=== PATIENT | male | born 1970 | race Caucasian/White ===

== ENCOUNTER → 2020-05-05 | Outpatient (CLI) | payer OTHER ==
--- NOTE | 2020-05-05 08:39 | CT ---
EXAMINATION TYPE: CT sinus wo con DATE OF EXAM: 05/05/2020 COMPARISON: None HISTORY: polyp of sinus CT DLP: [address] of the paranasal sinuses was performed in the axial and coronal planes. Bone and soft tissue settings are submitted. There is an expansile mass posterior to the left zygoma with extension into the left maxillary sinus measuring 4.2 x 3.5 x 3.2 cm. The mass extends to the floor of the orbit with the osseous floor of th e orbit poorly visualized and this may reflect underlying erosion. There is expansion of the anterior wall of the left maxillary sinus and zygoma with cortical disruption noted. Anterior fixation plate and screws are noted. There also plates and screws identified on bone the superior orbital ridge. The re is disruption of the lateral wall of the left maxillary sinus. Consider underlying polyposis. Mass of other etiology is difficult to exclude. Mucous retention cyst or polyp of the right maxillary sin us noted as well The nasal septum is midline. IMPRESSION: 1. Expansile mass posterior to the left zygoma with extension into the left maxillary sinus as discus sed above. Osseous erosion and expansion identified. The findings may reflect underlying polyposis ho wever mass of other etiology is not excluded. Postoperative changes identified as well. 2. Mucous or tension cyst or polyp of the right maxillary sinus noted as well.
== END | disposition home or self-care (01) ==
LOC: RADCTMAIN 08:07
PROVIDERS: ATTEND Otolaryngology Otolaryngic Allergy
DX: J32.0 Chronic maxillary sinusitis (principal); M85.88 Other specified disorders of bone density and structure, other site; Z98.890 Other specified postprocedural states
CPT/HCPCS: 70486

== ENCOUNTER 2020-05-15 09:51 | Day surgery (SDC) | payer OTHER ==
[2020-05-10 09:07] VITALS: BMI 25.4
[~2020-05-15 09:51] MED LIST: ALPRAZolam 0.25 MG TAB PO PRN; ALPRAZolam 0.5 MG TAB PO PRN; ASPIRIN 325 MG TAB PO ONE; NITROGLYCERIN SL TABS 0.4 MG TAB SUBLINGUAL PRN; SODIUM CHLORIDE 0.9% 1,000 ML in EMPTY BAG 1 BAG IV ONE
[2020-05-15 10:54] LABS: Basophils % (A) 1 %; Eosinophils # (A) 0.1 k/uL (0-0.7); Eosinophils % (A) 1 %; HCT 44.7 % (39.0-53.0); HGB 15.9 gm/dL (13.0-17.5); Lymphocytes # (A) 1.8 k/uL (1.0-4.8); Lymphocytes % (A) 30 %; MCH 33.1 pg (25.0-35.0); MCHC 35.5 g/dL (31.0-37.0); Mean Platelet Volume 6.9; Monocytes # (A) 0.3 k/uL (0-1.0); Monocytes % (A) 4 %; Neutrophils # (A) 3.8 k/uL (1.3-7.7); Neutrophils % (A) 63 %; Platelet Count 231 k/uL (150-450); RBC 4.81 m/uL (4.30-5.90); RDW 12.6 % (11.5-15.5)
[2020-05-15 10:55] VITALS: RESP 16; TEMP 98.4
[2020-05-15 11:06] LABS: African American GFR (CKD) >90 (>60 ml/min/1.73 sqM); Anion Gap 4 mmol/L; Blood Urea Nitrogen 13 mg/dL (9-20); Calcium 9.7 mg/dL (8.4-10.2); Carbon Dioxide 25 mmol/L (22-30); Chloride 111 mmol/L (98-107); Glucose 88 mg/dL (74-99); Non-African American GFR(CKD) 88 (>60 ml/min/1.73 sqM); Potassium 4.2 mmol/L (3.5-5.1); Sodium 140 mmol/L (137-145)
[2020-05-15] MEDS: LIDOCAINE 1% INJ 10MG/ML (20 ML MDV) SQ ONE ×2 (11:32→12:17)
[2020-05-15] MEDS ORDERED: fentaNYL (PF) 50 MCG/ML 2 ML AMP IVP ONE (11:32)
[2020-05-15] MEDS ORDERED: MIDAZOLAM 2 MG/2 ML VIAL IVP ONE (11:32)
[2020-05-15] MEDS ORDERED: VERAPAMIL SYRINGE (5 MG/10 ML) INTRAARTER ONE (11:33)
[2020-05-15] MEDS ORDERED: HEPARIN SODIUM 1,000 UN/ML (10ML VL) IVPB ONE (11:36)
[2020-05-15] MEDS ORDERED: IOPAMIDOL-370 125ML BTL INJ ONE (11:42)
[2020-05-15] MEDS ORDERED: RX INFO: IV CONTRAST WAS GIVEN 1 EACH MISC MISCELLANE PRN (11:55)
--- NOTE | 2020-05-15 11:55 | P.CARDCATH ---
Description of Procedure: PROCEDURES PERFORMED: Left heart catheterization, bilateral coronary angiography INDICATION: Nonsustained VT HISTORY: Patient is a pleasant 49-year-old male with a history of traumatic brain injury, epilepsy, asymptomatic pauses, SVT and nonsustained ventricular tachycardia. Patient admits to having a traumatic brain injury approximately 10 years ago and has been having seizures since that time. We initially saw patient and February 2020 where he had another seizure. We were consulted for a 3.6 second pause which was a conversion positive after a brief run of SVT. We therefore performed a 30 day event monitor. This showed 3 episodes of nonsustained ventricular tachycardia lasting 11-13 beats. He has been having occasional episodes of lightheadedness and there is additional concern that possibly his seizure-like activity to be related to syncope. Therefore recommendation was for a heart catheterization to rule out ischemic etiology as well as possible loop recorder if heart catheterization unrevealing. CONSENT:I have discussed the risks, benefits and alternative therapies for the above-mentioned procedure and for both sedation/analgesia as well as necessary blood product administration, if indicated, as they pertain to this patient. The patient has indicated understanding and acceptance of the risks and p rocedures discussed. PROCEDURE: After the risks, benefits and alternatives of the above mentioned procedure explained in detail with the patient, informed consent was obtained. Patient was taken to the catheterization lab and prepped and draped in usual fashion. 1% lidocaine was used to anesthetize the right radial artery. A 6- Citizen [place] sheath was placed in the right radial artery using modified Seldinger technique. Left coronary angiography was performed with a 5-Citizen [place] JL 3.5 catheter and right coronary angiography was performed with a 5-[place] JR5 catheter in various views. The FR5 catheter was inserted into the left ventricle and pressure measurements were obtained. The right radial sheath was removed and a TR band was placed with hemostasis achieved. The patient tolerated the procedure well. Patient was transported back to the post catheterization holding area in stable condition. Conscious Sedation: Patient was monitored under the direct supervision of vision of myself for conscious sedation using Versed and fentanyl for a total duration of 12 minutes HEMODYNAMICS: Aorta: 106/60 LV: 106/2, LVDP 13 SELECTIVE CORONARY ARTERIOGRAPHY: LEFT MAIN: The left main is a large caliber vessel which bifurcates into the LAD and circumflex. There is no significant stenosis. LEFT ANTERIOR DESCENDING CORONARY ARTERY: LAD is a large caliber vessel which wraps around to the apex. There are mild luminal irregularities with 10-20% stenosis of the proximal and mid LAD. No other significant stenosis. LEFT CIRCUMFLEX CORONARY ARTERY: Left circumflex is a moderate caliber vessel without significant stenosis. RIGHT CORONARY ARTERY: The right coronary artery is a large caliber vessel which gives off a PDA and PLV branch and is the dominant vessel. There are mild luminal irregularities of the RCA and otherwise no significant stenosis. FINAL IMPRESSION: 1. Relatively normal coronary arteries with only mild luminal irregularities. 2. Normal left-sided filling pressures. PLAN: 1. Aggressive risk factor modification per most recent ACC/AHA guidelines. 2. We will proceed with a loop recorder placement. Follow-up in the office in 1-2 weeks.
[2020-05-15 14:39] VITALS: BP 132/59; PULSE 53
== END 2020-05-15 16:45 | disposition home or self-care (01) ==
LOC: CATHCVL 09:51
PROVIDERS: ATTEND Internal Medicine
DX: I47.1 Supraventricular tachycardia (principal); I47.2 Ventricular tachycardia; R55 Syncope and collapse; S06.9X9S Unspecified intracranial injury with loss of consciousness of unspecified duration, sequela; G40.909 Epilepsy, unspecified, not intractable, without status epilepticus; Z88.1 Allergy status to other antibiotic agents; Z88.8 Allergy status to other drugs, medicaments and biological substances; Z79.899 Other long term (current) drug therapy
CPT/HCPCS: 93458; 33285; 80048; 85025; C1769; C1894; C1764; J2250; J0690; J2001; J3010; J1644; Q9967

== ENCOUNTER 2021-04-13 23:06 | Inpatient (IN) | payer OTHER ==
[2021-04-13] MEDS ORDERED: LORazepam 2 MG/ML INJ IV STA (23:15)
[2021-04-13] MEDS ORDERED: SODIUM CHLORIDE 0.9% 1,000 ML IV STA (23:15)
--- NOTE | 2021-04-13 23:16 | ED ---
Seizure HPI - General Chief Complaint: Seizure Stated Complaint: Seizure Time Seen by Provider: 04/13/21 23:15 Source: EMS, RN notes reviewed, old records reviewed Mode of arrival: EMS Limitations: altered mental status, physical limitation - History of Present Illness Initial Comments: This is a 50-year-old male presented with altered mental status. Patient is significantly altered arousable to the emergency department. History of seizures patient did have to significant seizures prior to arrival back to back very tender consciousness and total about 70 minutes history patient's unresponsive currently is maintaining airway is able to breathe. History obtained from EMS and patient's chart MD Complaint: seizure -: minutes(s) Description of Episode: loss of consciousness, tonic-clonic movement, post-event confusion, other (Significant postictal state) -: minutes(s) (17) Seizure History: known seizure disorder Place: home Possible Precipitating Event: none Associated Symptoms: denies other symptoms Treatments Prior to Arrival: none - Related Data Home Medications Medication Instructions Recorded Confirmed Metoprolol Succinate [Toprol XL] 25 mg PO DAILY 05/10/20 05/10/20 Topiramate [Topamax] 50 mg PO BID 05/10/20 05/15/20 levETIRAcetam [Keppra] 1,500 mg PO Q12HR 05/10/20 05/15/20 Allergies Allergy/AdvReac Type Severity Reaction Status Date / Time Barbiturates Allergy Rash/Hives Verified 05/10/20 09:04 ciprofloxacin [From Cipro] Allergy Rash/Hives Verified 05/10/20 09:04 divalproex sodium Allergy Rash/Hives Verified 05/10/20 09:04 Hydantoins Allergy Rash/Hives Verified 05/10/20 09:04 phenobarbital Allergy Rash/Hives Verified 05/10/20 09:04 phenytoin Allergy Rash/Hives Verified 05/10/20 09:04 Review of Systems ROS Statement: Those systems with pertinent positive or pertinent negative responses have been documented in the HPI. ROS Other: All systems not noted in ROS Statement are negative. Past Medical History Past Medical History: Seizure Disorder Additional Past Medical History / Comment(s): wore heart monitor recently for a month, AA w/TBI 1987, last grand mal seizure 2019 History of Any Multi-Drug Resistant Organisms: None Reported Past Surgical History: No Surgical Hx Reported Additional Past Anesthesia/Blood Transfusion Reaction / Comment(s): never had anesthesia, no family problems w/that he knows of Past Psychological History: Anxiety, Depression Smoking Status: Former smoker General Exam Limitations: altered mental status, physical limitation General appearance: alert, anxious Head exam: Present: atraumatic, normocephalic, normal inspection Eye exam: Present: normal appearance, PERRL, EOMI. Absent: scleral icterus, conjunctival injection, periorbital swelling ENT exam: Present: normal exam, mucous membranes moist Neck exam: Present: normal inspection. Absent: tenderness, meningismus, lymphadenopathy Respiratory exam: Present: normal lung sounds bilaterally. Absent: respiratory distress, wheezes, rales, rhonchi, stridor Cardiovascular Exam: Present: regular rate, normal rhythm, normal heart sounds. Absent: systolic murmur, diastolic murmur, rubs, gallop, clicks GI/Abdominal exam: Present: soft, normal bowel sounds. Absent: distended, tenderness, guarding, rebound, rigid Extremities exam: Present: normal inspection, full ROM, normal capillary refill. Absent: tenderness, pedal edema, joint swelling, calf tenderness Back exam: Present: normal inspection Neurological exam: Present: alert, oriented X3, CN II-XII intact Psychiatric exam: Present: normal affect, normal mood Skin exam: Present: warm, dry, intact, normal color. Absent: rash Course Vital Signs 04/13/21 04/13/21 04/14/21 23:08 23:15 01:15 Pulse Rate 79 110 H 112 H Respiratory 18 18 18 Rate Blood Pressure 140/85 167/97 O2 Sat by Pulse 99 99 Oximetry - Reevaluation(s) Reevaluation #1: 04/13/21 23:45 Medical record is reviewed Medical Decision Making - Lab Data Result diagrams: 04/13/21 23:42 04/13/21 00:50 Lab Results 04/13/21 04/13/21 04/13/21 Range/Units 00:50 00:50 23:42 WBC 7.9 (3.8-10.6) k/uL RBC 4.47 (4.30-5.90) m/uL Hgb 14.9 (13.0-17.5) gm/dL Hct 42.3 (39.0-53.0) % MCV 94.4 (80.0-100.0) fL MCH 33.2 (25.0-35.0) pg MCHC 35.2 (31.0-37.0) g/dL RDW 12.7 (11.5-15.5) % Plt Count 209 (150-450) k/uL MPV 7.1 Neutrophils % 83 % Lymphocytes % 11 % Monocytes % 4 % Eosinophils % 1 % Basophils % 0 % Neutrophils # 6.6 (1.3-7.7) k/uL Lymphocytes # 0.9 L (1.0-4.8) k/uL Monocytes # 0.3 (0-1.0) k/uL Eosinophils # 0.1 (0-0.7) k/uL Basophils # 0.0 (0-0.2) k/uL Hyperchromasia Slight Sodium 140 (137-145) mmol/L Potassium 4.3 (3.5-5.1) mmol/L Chloride 107 (98-107) mmol/L Carbon Dioxide 22 (22-30) mmol/L Anion Gap 11 mmol/L BUN 10 (9-20) mg/dL Creatinine 0.96 (0.66-1.25) mg/dL Est GFR (CKD-EPI)AfAm >90 (>60 ml/min/1.73 sqM) Est GFR (CKD-EPI)NonAf >90 (>60 ml/min/1.73 sqM) Glucose 99 (74-99) mg/dL Calcium 9.7 (8.4-10.2) mg/dL Magnesium 2.1 (1.6-2.3) mg/dL Total Bilirubin 0.6 (0.2-1.3) mg/dL AST 47 (17-59) U/L ALT 31 (4-49) U/L Alkaline Phosphatase 54 (38-126) U/L Total Protein 7.0 (6.3-8.2) g/dL Albumin 4.2 (3.5-5.0) g/dL Salicylates <1.0 mg/dL Urine Opiates Screen (NotDetected) Ur Oxycodone Screen (NotDetected) Urine Methadone Screen (NotDetected) Ur Propoxyphene Screen (NotDetected) Acetaminophen <10.0 ug/mL Ur Barbiturates Screen (NotDetected) U Tricyclic Antidepress (NotDetected) Ur Phencyclidine Scrn (NotDetected) Ur Amphetamines Screen (NotDetected) U Methamphetamines Scrn (NotDetected) U Benzodiazepines Scrn (NotDetected) Urine Cocaine Screen (NotDetected) U Marijuana (THC) Screen (NotDetected) Serum Alcohol <10 mg/dL Coronavirus (PCR) (Not Detectd) 04/13/21 04/14/21 Range/Units 23:42 00:58 WBC (3.8-10.6) k/uL RBC (4.30-5.90) m/uL Hgb (13.0-17.5) gm/dL Hct (39.0-53.0) % MCV (80.0-100.0) fL MCH (25.0-35.0) pg MCHC (31.0-37.0) g/dL RDW (11.5-15.5) % Plt Count (150-450) k/uL MPV Neutrophils % % Lymphocytes % % Monocytes % % Eosinophils % % Basophils % % Neutrophils # (1.3-7.7) k/uL Lymphocytes # (1.0-4.8) k/uL Monocytes # (0-1.0) k/uL Eosinophils # (0-0.7) k/uL Basophils # (0-0.2) k/uL Hyperchromasia Sodium (137-145) mmol/L Potassium (3.5-5.1) mmol/L Chloride (98-107) mmol/L Carbon Dioxide (22-30) mmol/L Anion Gap mmol/L BUN (9-20) mg/dL Creatinine (0.66-1.25) mg/dL Est GFR (CKD-EPI)AfAm (>60 ml/min/1.73 sqM) Est GFR (CKD-EPI)NonAf (>60 ml/min/1.73 sqM) Glucose (74-99) mg/dL Calcium (8.4-10.2) mg/dL Magnesium (1.6-2.3) mg/dL Total Bilirubin (0.2-1.3) mg/dL AST (17-59) U/L ALT (4-49) U/L Alkaline Phosphatase (38-126) U/L Total Protein (6.3-8.2) g/dL Albumin (3.5-5.0) g/dL Salicylates mg/dL Urine Opiates Screen Not Detected (NotDetected) Ur Oxycodone Screen Not Detected (NotDetected) Urine Methadone Screen Not Detected (NotDetected) Ur Propoxyphene Screen Not Detected (NotDetected) Acetaminophen ug/mL Ur Barbiturates Screen Not Detected (NotDetected) U Tricyclic Antidepress Not Detected (NotDetected) Ur Phencyclidine Scrn Not Detected (NotDetected) Ur Amphetamines Screen Not Detected (NotDetected) U Methamphetamines Scrn Not Detected (NotDetected) U Benzodiazepines Scrn Not Detected (NotDetected) Urine Cocaine Screen Not Detected (NotDetected) U Marijuana (THC) Screen Detected H (NotDetected) Serum Alcohol mg/dL Coronavirus (PCR) Not Detected (Not Detectd) - EKG Data -: EKG Interpreted by Me (EKG shows rate 96 NM 164 QRS 86 434) Disposition Clinical Impression: Epileptic seizure, generalized, Postictal confusion Disposition: ADMITTED IP TO THIS HOSP Condition: Serious Instructions (If sedation given, give patient instructions): Seizure/Epilepsy Discharge Instructions & Follow-Up Is patient prescribed a controlled substance at d/c from ED?: No Referrals: Gardenia Ambriz MD [Primary Care Provider] - 1-2 days
[2021-04-13] MEDS ORDERED: FUROSEMIDE 10 MG/ML 10 ML VIAL IV STA (23:23)
[2021-04-13] MEDS ORDERED: levETIRAcetam IV 1,000 MG in SALINE 1 100ML.BAG IVPB ONE (23:30)
[2021-04-14 00:02] LABS: Basophils % (A) 0 %; Eosinophils # (A) 0.1 k/uL (0-0.7); Eosinophils % (A) 1 %; HCT 42.3 % (39.0-53.0); HGB 14.9 gm/dL (13.0-17.5); Hyperchromasia Slight; Lymphocytes # (A) 0.9 k/uL (1.0-4.8); Lymphocytes % (A) 11 %; MCH 33.2 pg (25.0-35.0); MCHC 35.2 g/dL (31.0-37.0); MCV 94.4 fL (80.0-100.0); Mean Platelet Volume 7.1; Monocytes # (A) 0.3 k/uL (0-1.0); Monocytes % (A) 4 %; Neutrophils # (A) 6.6 k/uL (1.3-7.7); Neutrophils % (A) 83 %; Platelet Count 209 k/uL (150-450); RBC 4.47 m/uL (4.30-5.90); RDW 12.7 % (11.5-15.5); WBC 7.9 k/uL (3.8-10.6)
[2021-04-14 00:04] LABS: Amphetamine Screen,Urine Not Detected (NotDetected); Barbiturate Screen,Urine Not Detected (NotDetected); Benzodiazepines Screen,Urine Not Detected (NotDetected); Cocaine Screen,Urine Not Detected (NotDetected); Methadone Screen, Urine Not Detected (NotDetected); Opiate Screen,Urine Not Detected (NotDetected); Oxycodone Screen, Urine Not Detected (NotDetected); Phencyclidine Screen,Urine Not Detected (NotDetected); Tricyclic Antidepressant,Urine Not Detected (NotDetected); Urn Cannabinoid Scrn Detected (NotDetected)
[2021-04-14] MEDS ORDERED: LORazepam 2 MG/ML INJ IV STA (00:05)
--- NOTE | 2021-04-14 00:10 | CT ---
EXAMINATION TYPE: CT brain cspine wo con DATE OF EXAM: 04/13/2021 COMPARISON: None HISTORY: Seizure CT DLP: 1471.4 mGycm Automated exposure control for dose reduction was used. Images obtained of the brain and cervical spine without contrast. There is a 4 x 2 cm area of young and white matter hypodensity left frontal lobe consistent with encep halomalacia. There is apparent old left frontal craniotomy defect. There is no midline shift. There i s no sign of intracranial hemorrhage. There is extensive mucosal thickening in the left maxillary sinus with expansion and erosion of the f shell of the left bony orbit. There is some lateral ballooning of the lateral wall of the left maxilla ry sinus. There is large mucus retention cyst right maxillary sinus. Cervical vertebra have normal alignment. There is no compression fracture. There is degenerative disc space narrowing at C5-6 and C6-7 with spurring of the endplates. Facet joints are intact. The skull base is intact. There is normal aeration of the mastoid sinuses. IMPRESSION: Encephalomalacia left frontal lobe. No acute intracranial abnormality. Expansile mass left maxillary sinus that could be a mucocele measuring 4.6 cm in diameter. There is erosion of the floor of the lef t bony orbit and the posterior wall and lateral wall of the left maxillary sinus. Mass in the left maxillary sinus is not significantly different than old CT scan of 05/05/2020. Spondylotic changes in the lower cervical spine. No fracture.
[2021-04-14 01:23] LABS: ALT 31 U/L (4-49); AST 47 U/L (17-59); Acetaminophen <10.0 ug/mL; African American GFR (CKD) >90 (>60 ml/min/1.73 sqM); Albumin 4.2 g/dL (3.5-5.0); Alcohol <10 mg/dL; Alkaline Phosphatase 54 U/L (38-126); Anion Gap 11 mmol/L; Blood Urea Nitrogen 10 mg/dL (9-20); Calcium 9.7 mg/dL (8.4-10.2); Carbon Dioxide 22 mmol/L (22-30); Chloride 107 mmol/L (98-107); Glucose 99 mg/dL (74-99); Non-African American GFR(CKD) >90 (>60 ml/min/1.73 sqM); Potassium 4.3 mmol/L (3.5-5.1); Salicylate <1.0 mg/dL; Sodium 140 mmol/L (137-145); Total Bilirubin 0.6 mg/dL (0.2-1.3)
[2021-04-14] MEDS ORDERED: NALOXONE 0.4 MG/ML 1 ML VIAL IV PRN (02:17)
[2021-04-14] MEDS ORDERED: ONDANSETRON 4 MG/2 ML VIAL IVP PRN (02:17)
[2021-04-14] MEDS ORDERED: LORazepam 2 MG/ML INJ IV PRN (02:17)
[2021-04-14] MEDS ORDERED: MORPHINE SULFATE 4 MG/ML SYRINGE IV PRN (02:17)
[2021-04-14] MEDS: SODIUM CHLORIDE 0.9% 1,000 ML IV SCH ×3 (03:05→22:23)
[2021-04-14] MEDS ORDERED: levETIRAcetam IV 1,000 MG in SALINE 1 100ML.BAG IVPB SCH (09:00)
[2021-04-14] MEDS ORDERED: levETIRAcetam 500 MG TAB PO STA (10:11)
--- NOTE | 2021-04-14 10:31 | P.CNNES ---
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 According to the patient he states that it's he is not sure why he is in the hospital. He is not aware that he had a seizure. He said he resides at home alone. He denies of any headache, any fever, any focal weakness, any new visual disturbance, any numbness or tingling that's needle, any difficulty getting his words out. He denies of any tongue bite soreness of the tongue, any urinary or bowel incontinence. He does state that the he does have history of seizures and the last seizure was in February 2020. Patient was not a great historian and he stated that he followed up with multiple neurologist regarding his seizure but could not tell me names but last neurologist is Dr. Damon. He states that he is only on Keppra and he is on metoprolol for his home medications. He believes that his Keppra was the decreased recently about 2 months ago by his neurologist but he cannot tell me the dose. In the EMR it states that the patient is on Keppra as well as Topamax. Patient denies that he is on Topamax. She denies of any illicit drug use, alcohol use or tobacco use that. He denies of driving. Patient follows up with Dr. Leija as his primary care physician. He doesn't use marijuana. Per nurse no seizure-like activity was noted to her and patient she was notified that possibly he had a seizure that last several minutes that lead him to hospital. Regarding his seizure semiology he states that he does not know. Upon asking him if anybody witnessed any seizures she said that he is not aware. Patient nurse notified me that the his outpatient pharmacy ([email or web address]) looks like the patient is on Keppra 1500 mg twice a day which has not been changed since and that Topamax 100 mg 1 tablet twice a day has been filled but the last time was filled was in Spring 02/14/2021 for 30 days. Some other workup in the hospital consisted of: Initial vital signs as blood pressure 134/78, heart rate of 79, respiratory of 18, temperature of 98.7 Fahrenheit oral and pulse ox of 96% on 15 L nonrebreather. CBC with differential is unremarkable Chemistry panel the basic is unremarkable. Initial serum glucose is 99, calcium is 9.8, magnesium 2.1, sodium is 140, creatinine is 0.96, AST of 47 ALT of 31. Urine toxicology screen is the THC screen is detected otherwise the rest are not detected that. The serum alcohol was less than 10, salicylate is less than 1.0, acetaminophen is less than 10.0. Mcguire virus PCR was not detected. CT of the head is reported as encephalomalacia over the left frontal lobe. No acute intracranial abnormality. 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 There is erosion of the floor of the left bony orbit and the posterior wall and lateral wall of the left maxillary sinus. Mass in the left maxillary sinus is not significantly different than old computed tomography scan on 05/05/2020. I personally reviewed the CT of the head and the patient does have left frontal encephalomalacia with left frontal skull defect. CT cervical spine is reported as more like changes in the lower cervical spine. No fracture. Review of Systems Review of system: The 12 point system was reviewed and apparent positive and negative per HPI. Past Medical History Past Medical History: Seizure Disorder Additional Past Medical History / Comment(s): wore heart monitor recently for a month, AA w/TBI 1987, last grand mal seizure 2019 History of Any Multi-Drug Resistant Organisms: None Reported Past Surgical History: No Surgical Hx Reported Additional Past Anesthesia/Blood Transfusion Reaction / Comment(s): never had anesthesia, no family problems w/that he knows of Past Psychological History: Anxiety, Depression Additional Psychological History / Comment(s): currently resides with friends Smoking Status: Former smoker Past Alcohol Use History: None Reported Additional Past Alcohol Use History / Comment(s): quit smoking 15 yrs. ago, smoked only couple years, maybe a ppweek, quit drinking several years ago Past Drug Use History: None Reported Additional Drug Use History / Comment(s): no recent marijuana use Medications and Allergies Home Medications Medication Instructions Recorded Confirmed Type Metoprolol Succinate [Toprol XL] 25 mg PO DAILY 05/10/20 04/14/21 History levETIRAcetam [Keppra] 1,500 mg PO Q12H 05/10/20 04/14/21 History Celecoxib [CeleBREX] 200 mg PO DAILY PRN 04/14/21 04/14/21 History Allergies Allergy/AdvReac Type Severity Reaction Status Date / Time Barbiturates Allergy Rash/Hives Verified 04/14/21 08:23 ciprofloxacin [From Cipro] Allergy Rash/Hives Verified 04/14/21 08:23 divalproex sodium Allergy Rash/Hives Verified 04/14/21 08:23 Hydantoins Allergy Rash/Hives Verified 04/14/21 08:23 phenobarbital Allergy Rash/Hives Verified 04/14/21 08:23 phenytoin Allergy Rash/Hives Verified 04/14/21 08:23 Physical Examination - Vital Signs Vital Signs: Vital Signs Temp Pulse Pulse Resp BP BP Pulse Ox 04/14/21 07:56 98.8 F 105 H 18 141/80 100 04/14/21 07:16 100 04/14/21 03:51 97.6 F 69 15 132/80 100 04/14/21 03:00 62 18 139/91 99 04/14/21 01:15 112 H 18 167/97 99 04/13/21 23:15 110 H 18 140/85 99 04/13/21 23:08 98.7 F 79 18 134/78 96 Intake and Output 04/13/21 04/14/21 04/14/21 22:59 06:59 14:59 Output Total 700 Balance -700 Output: Urine 700 Other: Weight 86.183 kg GENERAL: The patient is lying in bed and is not in acute distress. HENT: has old scar over bilateral frontal region near central region (likely as result of his previous TBI) CHEST: The heart rate is regular rate rhythm. No murmurs to auscultation. No carotid bruit bilaterally. LUNG: Clear to auscultation bilaterally no wheezing noted throughout. Not labored breathing. ABDOMEN/GI: Bowel sounds present in all 4 quadrants. No tenderness to palpation throughout. PSYCH: Flat affect. NEUROLOGICAL: Higher mental function: The patient is awake, alert, oriented to self, place. He states the year is 2000 but correctly states the month. Is able to name objects (pen, watch and glasses). Patient is following commands. No aphasia and no neglect. Cranial nerves: The right pupil is round, and reactive to light. While the left is about 4-5mm and does not seem reactive to light and is legally blind (old since TBI). Right visual field is normal throughout to controntation. Primary gaze of left eye is up and out. Extraocular movement is seems unable to fully look medially (nasal) over the left eye. Otherwise EOM is intact. Facial sensation is normal to touch throughout. The facial strength is normal throughout. Hearing is normal bilaterally to hand rub. Tongue is midline and moved [id number] without any difficulty. No dysarthria is noted. Shoulder shrug is normal bilaterally. Motor: Gait is deferred. The strength is right forearm flexion is 4+ to 5-. Otherwise 5 over 5 throughout. Normal tone and bulk. Cerebellum: Normal finger to nose bilaterally. Sensation: Sensation is normal to touch throughout. Reflexes (right/left): 2+ throughout. Plantars are mute bilaterally. Results - Laboratory Findings CBC and BMP: 04/13/21 23:42 04/13/21 00:50 Abnormal Lab Findings: Abnormal Labs 04/13/21 04/13/21 23:42 23:42 Lymphocytes # 0.9 L U Marijuana (THC) Screen Detected H Assessment and Plan Assessment: Possible Breakthrough seizure due to seems stopping of his one of antiepileptic drugs (it seems Topamax). 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 Patient was also given total of 2 mg of Ativan. * I will restart the patient on his home dose of Keppra 1500mg 1 tab bid. And will restart Topamax 100mg 1 tab bid (last time filled was 02/13/2021 for 30 days). * In my opinion if the patient is a having any side effects such as mood disorder (especially with left frontal encephalomalacia) the Keppra should be switched to a different medication such as Vimpat and this can be done as an o utpatient and we'll defer to his neurologist. * I spoke with the primary team and she said she will try to find out his home medication on 04/16/2021 (since he is known to Dr. Ambriz's). * Every 4 hours neuro checks * Placed the patient on seizure precautions and seizure pads * Stat EEG was ordered by the ED team and I will discontinue it since he is back to baseline and is known to have seizure. * Keppra level is ordered by the primary team. * Regarding the reported left maxillary mass that is been the same since 2019 images reported and unchanged recommend further work-up by ENT/Oncology team and can be done as outpatient. Cannot get MRI images since patient has tether over the right ankle. * We'll defer the rest of the medical management to the primary team. * Upon discharge the patient needs to follow-up with a neurologist within 1-2 weeks * Patient was notified that per [place] [employer] because of the seizures the patient cannot drive for 6 month until seizure-free. She is to avoid heights, use heavy machinery or swim unassisted. * If patient condition remains stable by tomorrow and no further seizures, he is clear from neurological perspective. The plan is discussed with patient, primary team and his nurse. Thank you for the consultation. Dann Bryant M.D. Neuro-hospitalist Time with Patient: Greater than 30
--- NOTE | 2021-04-14 11:49 | P.HPIM ---
History of Present Illness H&P Date: 04/14/21 This is a 50 years old male patient of Dr. Ambriz and Dr. Jnoes with a history of closed head injury in 1987, history of seizures secondary to traumatic brain injury sees Dr. Crane? according to patient , left eye blindness comes in by EMS last night possible seizure. According to the ER physician patient had 2 seizures prior to coming to the hospital. Patient was noted to be postictal in the emergency room and was unable to provide much history. Patient is not sure who brought him to the hospital as he lives by himself. He denies any headache, chills, recent sickness, denies any tongue bite or soreness of the tongue, urinary or bowel incontinence. He denies any numbness and tingling, denies any motor deficit. He denies any history of migraines. Last seizure was in February 2020. Patient has been taking his medication consistently. Nurse updated patient's medication appear patient was also on Topamax prior to January 2021 for 30 days. Being a weekend could not get in touch with patient's neurologist. Patient does endorse use of marijuana in the past 3 months which he has not done in the past. He is currently unemployed and is working on his disability paperwork. Vitals in the ER suggestive of 98.8 pulse 105 respiratory rate 18 blood pressure 141/80 patient is 100% oxygen on 4 L. Labs were obtained patient's CBC is unremarkable, BUN is 10 creatinine 0.96 liver enzymes are normal salicylate levels are less than 1, acetaminophen less than 10 serum alcohol less than 10. Urine drug screen is positive for marijuana COVID is negative. CT head and C-spine suggestive of encephalomalacia left frontal lobe. No acute intracranial abnormality. 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 Erosion of the floor of the left bony orbit and posterior wall and lateral wall of the left maxillary sinus. Spondy litic changes in the lower cervical spine no fracture ROS Constitutional: Denies chills, Denies fever, Denies lethargy, Denies malaise, Denies poor appetite, Denies weakness, Denies weight loss, appears sleepy Eyes: denies decreased vision, denies diplopia, denies discharge, denies pain Ears: deny: decreased hearing Ears, nose, mouth and throat: Denies dental pain, Denies headache, Denies nasal discharge, Denies nose pain Cardiovascular: Denies chest pain, Denies decreased exercise tolerance, Denies edema, Denies high blood pressure, Denies irregular heart beat, Denies palpitations, Denies paroxysmal nocturnal dyspnea, Denies rapid heart beat, Denies shortness of breath Respiratory: Denies congestion, Denies cough, Denies cough with sputum, Denies dyspnea, Denies home oxygen, Denies wheezing Gastrointestinal: Denies abdominal pain, Denies change in bowel habits, Denies coffee ground emesis, Denies early satiety, Denies excessive gas, Denies heartburn, Denies hematemesis, Denies hematochezia, Denies loss of appetite, Denies nausea, Denies vomiting Genitourinary: Denies dysuria, Denies flank pain, Denies kidney stones, Denies menorrhagia, Denies urgency, Denies urinary frequency Musculoskeletal: Denies gait dysfunction, Denies limitation of motion, Denies morning stiffness, Denies muscle cramps denies any pain or bruising in any of the extremities Integumentary: Denies rash, Denies wounds, Denies brittle nails, Denies change in hair/nails, Denies darkening of skin Neurological: Denies balance difficulties, Denies change in speech, Denies doub le vision, Denies gait dysfunction, Denies loss of vision, Denies motor disturbance, Denies numbness, Denies paralysis, Denies paresthesias, Denies seizures Psychiatric: Denies anxiety, Denies depression Endocrine: Denies excessive sweating, Denies excessive thirst, Denies high blood sugars, Denies palpitations Hematologic/Lymphatic: Denies easy bruising, Denies lymphadenopathy Social history Nonsmoker Nondrinker Uses marijuana intermittently, last use was one week ago Lives by himself Family history Mother 4 years ago in her 80s Father in his 50s No siblings No children Physical exam - Constitutional General appearance: cooperative, no acute distress, appears stated age, has a significant scar on the left frontal area, and the scar on his face - EENT Eyes: anicteric sclerae, PERRLA, normal appearance daily blind in left eye ENT: hearing grossly normal - Neck Neck: no lymphadenopathy, normal ROM, no other, no rigidity, no stridor, no thyromegaly - Respiratory Respiratory: bilateral: CTA, negative: diminished, dullness, rales, rhonchi - Cardiovascular Rhythm: regular Heart sounds: normal: S1, S2 Abnormal Heart Sounds: no systolic murmur, no diastolic murmur, no rub, no S3 Gallop, no S4 Gallop, no click, no other - Gastrointestinal General gastrointestinal: normal bowel sounds, soft - Integumentary Integumentary: no rash - Neurologic Neurologic: CNII-XII intact, no rigidity no increase in tone with no motor or sensory deficit - Musculoskeletal Musculoskeletal: gait not assessed, strength equal bilaterally - Psychiatric Psychiatric: A&O x's 3, appropriate affect Assessment and plan Seizure likely secondary to change in medication and use of marijuana - Patient encouraged not to use marijuana - Neurology consulted - Topamax initiated at 100 mg 1 tab twice a day which was on it in January - Follow with Dr. Jones as outpatient - Status post 1000 mg IV Keppra followed by 1000 IV Keppra twice a day - Patient switched to home dose of Keppra 1500 mg twice daily - Continue seizure precautions - Continue fall precautions - EEG discontinued as status epilepticus was ruled out by neurology History of seizure last seizure February 2020 - Home dose of Keppra 1 1500 mg twice a day initiated - Keppra levels ordered Frontal encephalomalacia secondary to traumatic brain injury Traumatic brain injury in 1987 Left eye blindness 1987 - MRI cannot be obtained as patient has a tether on right ankle - Follow as outpatient in neurology 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 - Need follow-up with ENT as outpatient - No change compared to the previous CT completed in 2019 Marijuana use - Patient encouraged to avoid marijuana to prevent lowering threshold for seizure DVT prophylaxis - SCDs bilaterally CODE STATUS - full cide Disposition home tomorrow if being seizure free Past Medical History Past Medical History: Seizure Disorder Additional Past Medical History / Comment(s): wore heart monitor recently for a month, AA w/TBI 1987, last grand mal seizure 2019 History of Any Multi-Drug Resistant Organisms: None Reported Past Surgical History: No Surgical Hx Reported Additional Past Anesthesia/Blood Transfusion Reaction / Comment(s): never had anesthesia, no family problems w/that he knows of Past Psychological History: Anxiety, Depression Additional Psychological History / Comment(s): currently resides with friends Smoking Status: Former smoker Past Alcohol Use History: None Reported Additional Past Alcohol Use History / Comment(s): quit smoking 15 yrs. ago, smoked only couple years, maybe a ppweek, quit drinking several years ago Past Drug Use History: None Reported Additional Drug Use History / Comment(s): no recent marijuana use Medications and Allergies Home Medications Medication Instructions Recorded Confirmed Type Metoprolol Succinate [Toprol XL] 25 mg PO DAILY 05/10/20 04/14/21 History levETIRAcetam [Keppra] 1,500 mg PO Q12H 05/10/20 04/14/21 History Celecoxib [CeleBREX] 200 mg PO DAILY PRN 04/14/21 04/14/21 History Allergies Allergy/AdvReac Type Severity Reaction Status Date / Time Barbiturates Allergy Rash/Hives Verified 04/14/21 08:23 ciprofloxacin [From Cipro] Allergy Rash/Hives Verified 04/14/21 08:23 divalproex sodium Allergy Rash/Hives Verified 04/14/21 08:23 Hydantoins Allergy Rash/Hives Verified 04/14/21 08:23 phenobarbital Allergy Rash/Hives Verified 04/14/21 08:23 phenytoin Allergy Rash/Hives Verified 04/14/21 08:23 Physical Exam Vitals: Vital Signs Temp Pulse Pulse Resp BP BP Pulse Ox 04/14/21 07:56 98.8 F 105 H 18 141/80 100 04/14/21 07:16 100 04/14/21 03:51 97.6 F 69 15 132/80 100 04/14/21 03:00 62 18 139/91 99 04/14/21 01:15 112 H 18 167/97 99 04/13/21 23:15 110 H 18 140/85 99 04/13/21 23:08 98.7 F 79 18 134/78 96 Intake and Output 04/13/21 04/14/21 04/14/21 22:59 06:59 14:59 Output Total 700 Balance -700 Output: Urine 700 Other: Weight 86.183 kg Results CBC & Chem 7: 04/13/21 23:42 04/13/21 00:50 Labs: Abnormal Lab Results - Last 24 Hours (Table) 04/13/21 04/13/21 Range/Units 23:42 23:42 Lymphocytes # 0.9 L (1.0-4.8) k/uL U Marijuana (THC) Screen Detected H (NotDetected) Thrombosis Risk Factor Assmnt - Choose All That Apply Any of the Below Risk Factors Present?: Yes Each Factor Represents 1 point: Age 41-60 years Other Risk Factors: No Other congenital or acquired thrombophilia - If yes, enter type in comment: No Thrombosis Risk Factor Assessment Total Risk Factor Score: 1 Thrombosis Risk Factor Assessment Level: Low Risk
[2021-04-14] MEDS: TOPIRAMATE 100 MG TAB PO SCH ×2 (12:42→22:24)
[2021-04-14] MEDS ORDERED: ALPRAZolam 0.5 MG TAB PO SCH (21:00)
[2021-04-15] MEDS: SODIUM CHLORIDE 0.9% 1,000 ML IV SCH (02:08)
[2021-04-15 03:26] VITALS: PULSE 67
[2021-04-15 06:27] VITALS: BP 130/80; RESP 19; TEMP 99
[2021-04-15] MEDS: TOPIRAMATE 100 MG TAB PO SCH (08:12)
[2021-04-15] MEDS ORDERED: METOPROLOL SUCCINATE (ER) 25 MG TAB.ER.24H PO SCH (09:00)
[2021-04-15 09:26] LABS: Basophils # (A) 0.03 X 10*3/uL (0.00-0.10); Basophils % (A) 0.5 %; Eosinophils # (A) 0.12 X 10*3/uL (0.04-0.35); HCT 40.5 % (39.6-50.0); HGB 14.1 g/dL (13.0-17.0); Lymphocytes # (A) 2.15 X 10*3/uL (0.90-5.00); Lymphocytes % (A) 36.1 %; MCH 32.2 pg (27.0-32.0); MCHC 34.8 g/dL (32.0-37.0); MCV 92.5 fL (80.0-97.0); Mean Platelet Volume 9.5 fL (9.5-12.2); Monocytes # (A) 0.39 X 10*3/uL (0.20-1.00); Monocytes % (A) 6.6 %; Neutrophils # (A) 3.25 X 10*3/uL (1.80-7.70); Neutrophils % (A) 54.6 %; Platelet Count 173 X 10*3/uL (140-440); RBC 4.38 X 10*6/uL (4.40-5.60); RDW 11.7 % (11.5-14.5); WBC 5.95 X 10*3/uL (4.50-10.00)
[2021-04-15 10:38] LABS: African American GFR (CKD) 102.6 (60.0-200.0); Albumin 3.8 g/dL (3.8-4.9); Albumin/Globulin Ratio 1.82 (1.60-3.17); Anion Gap 10.1 mmol/L (10.00-18.00); BUN/Creat Ratio 8.38 Ratio (12.00-20.00); Blood Urea Nitrogen 8.2 mg/dL (9.0-27.0); Calcium 9.3 mg/dL (8.7-10.3); Carbon Dioxide 19.9 mmol/L (20.0-27.5); Globulin 2.1 g/dL (1.6-3.3); Non-African American GFR(CKD) 88.5 (60.0-200.0); Phosphorus 3.2 mg/dL (2.4-5.1); Potassium 4.2 mmol/L (3.5-5.5); Total Bilirubin 1.3 mg/dL (0.30-1.20); Total Protein 5.9 g/dL (6.2-8.2)
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
== END 2021-04-15 14:26 | disposition home or self-care (01) | DRG 101 ==
LOC: EC 23:06 → 4SSUR 04-14 02:17
PROVIDERS: ADMIT Family Medicine; ATTEND Family Medicine
DX: G40.409 Other generalized epilepsy and epileptic syndromes, not intractable, without status epilepticus (principal); G93.89 Other specified disorders of brain; F12.90 Cannabis use, unspecified, uncomplicated; Z20.822 Contact with and (suspected) exposure to COVID-19; T42.6X6A Underdosing of other antiepileptic and sedative-hypnotic drugs, initial encounter; Z91.128 Patient's intentional underdosing of medication regimen for other reason; J34.1 Cyst and mucocele of nose and nasal sinus; F41.9 Anxiety disorder, unspecified; F32.A Depression, unspecified; H54.62 Unqualified visual loss, left eye, normal vision right eye; H91.90 Unspecified hearing loss, unspecified ear; Z79.899 Other long term (current) drug therapy; Z87.891 Personal history of nicotine dependence; Z87.820 Personal history of traumatic brain injury; Z60.2 Problems related to living alone; Z56.0 Unemployment, unspecified; Z88.1 Allergy status to other antibiotic agents; Z88.8 Allergy status to other drugs, medicaments and biological substances
CPT/HCPCS: 36415; 70450; 72125; 80053; 80143; 80177; 80179; 80306; 80320; 83735; 84100; 85025; 87635; 93005; 96365; 96375; 96376; 99285

== ENCOUNTER → 2022-08-05 | Outpatient (CLI) | payer OTHER ==
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
== END | disposition home or self-care (01) ==
LOC: RADCTMAIN 14:22
PROVIDERS: ATTEND Psychiatry & Neurology Neurology
DX: G93.89 Other specified disorders of brain (principal); G40.909 Epilepsy, unspecified, not intractable, without status epilepticus; J32.0 Chronic maxillary sinusitis
CPT/HCPCS: 70450

== ENCOUNTER 2022-09-04 08:17 | Day surgery (SDC) | payer OTHER ==
[2022-08-29 15:54] VITALS: BMI 23.0
[~2022-09-04 08:17] MED LIST changes: -ALPRAZolam 0.25 MG TAB PO PRN; -ALPRAZolam 0.5 MG TAB PO PRN; -ASPIRIN 325 MG TAB PO ONE; -NITROGLYCERIN SL TABS 0.4 MG TAB SUBLINGUAL PRN; +SODIUM CHLORIDE 0.9% 1,000 ML IV SCH; -SODIUM CHLORIDE 0.9% 1,000 ML in EMPTY BAG 1 BAG IV ONE
[2022-09-04 08:38] VITALS: BP 122/72; PULSE 70; RESP 16; TEMP 97.9
[2022-09-04] MEDS ORDERED: LIDOCAINE 1% INJ 10MG/ML (20 ML MDV) ONE (11:27)
[2022-09-04] MEDS ORDERED: LIDOCAINE 1% INJ 10MG/ML (20 ML MDV) SQ ONE (11:40)
--- NOTE | 2022-09-06 13:00 | P.PCN ---
Description of Procedure: Procedure: Explant of Linq loop recorder Indication: Need for removal of loop recorder for nerve stimulator placement HISTORY: Patient is a pleasant 51-year-old male with history of prior seizures, nonsustained VT, bradycardia and questionable syncope who had a loop recorder placed however now recommending to undergo nerve stimulator placement and needing loop recorder removed. Patient has had intermittent episodes of bradycardia and nonsustained VT on loop recorder interrogations however no other significant findings and therefore recommended removal of the loop recorder. CONSENT:I have discussed the risks, benefits and alternative therapies for the above-mentioned procedure. The patient has indicated understanding and acceptance of the risks and procedures discussed. PROCEDURE: Patient was brought to the catheterization lab in a fasting state. Patient was prepped and draped in the usual fashion. 1% lidocaine was used to anesthetize the area over the loop recorder. The loop recorder was some what deeper and able to be grasped with hemostats and removed. Next the incision was closed using Dermabond. Steristrips were placed over the incision and the procedure was completed. The patient tolerated the procedure well. The patient was transported to the post cath holding area in stable condition.
== END 2022-09-04 12:47 | disposition home or self-care (01) ==
LOC: CATHEP 08:17
PROVIDERS: ATTEND Internal Medicine
DX: Z45.09 Encounter for adjustment and management of other cardiac device (principal); I47.1 Supraventricular tachycardia; I10 Essential (primary) hypertension; G40.909 Epilepsy, unspecified, not intractable, without status epilepticus; Z87.820 Personal history of traumatic brain injury; I08.1 Rheumatic disorders of both mitral and tricuspid valves; F17.210 Nicotine dependence, cigarettes, uncomplicated; Z88.1 Allergy status to other antibiotic agents; Z88.8 Allergy status to other drugs, medicaments and biological substances; Z79.899 Other long term (current) drug therapy
CPT/HCPCS: 33286; J0690; J2001

== ENCOUNTER → 2022-09-26 | Outpatient (CLI) | payer OTHER ==
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
== END ==
LOC: SLEEP 11:26
PROVIDERS: ATTEND Internal Medicine
DX: G47.33 Obstructive sleep apnea (adult) (pediatric) (principal); R56.9 Unspecified convulsions; Z88.1 Allergy status to other antibiotic agents; Z88.6 Allergy status to analgesic agent; Z88.8 Allergy status to other drugs, medicaments and biological substances; V89.2XXD Person injured in unspecified motor-vehicle accident, traffic, subsequent encounter
CPT/HCPCS: 99211

== ENCOUNTER 2022-10-28 19:25 | Outpatient (CLI) | payer OTHER | END 2022-10-29 23:59 | LOC: 3 N SLEEP 19:25 → EDSTATUS 19:30 → 3 N SLEEP 10-29 05:25 | PROVIDERS: ATTEND Internal Medicine | DX: G47.33 Obstructive sleep apnea (adult) (pediatric) (principal); V89.2XXA Person injured in unspecified motor-vehicle accident, traffic, initial encounter; G40.89 Other seizures; Z87.891 Personal history of nicotine dependence; Z79.899 Other long term (current) drug therapy; Z88.1 Allergy status to other antibiotic agents; Z88.6 Allergy status to analgesic agent; Z88.8 Allergy status to other drugs, medicaments and biological substances | CPT/HCPCS: 95810 ==

== ENCOUNTER → 2023-04-25 | Outpatient (CLI) | payer OTHER ==
--- NOTE | 2023-04-25 13:05 | US ---
EXAMINATION TYPE: US abdomen complete DATE OF EXAM: 04/25/2023 COMPARISON: NONE CLINICAL INDICATION: Male, 52 years old with history of R10.9 Upper Abdominal pain; Right flank pain x couple months TECHNIQUE: Multiple sonographic images of the abdomen are obtained. FINDINGS: EXAM MEASUREMENTS: Liver Length: 15.9 cm Gallbladder Wall: 0.2 cm CBD: 0.3 cm Spleen: 11.9 cm Right Kidney: 11.3 x 5.8 x 4.9 cm Left Kidney: 11.2 x 5.2 x 6.1 cm Pancreas: obscured by overlying midline bowel gas Liver: wnl Gallbladder: wnl Evidence for sonographic Crawley's sign: no CBD: visualized portions wnl, limited by overlying bowel gas Spleen: wnl Right Kidney: wnl Left Kidney: wnl Upper IVC: wnl Abd Aorta: visualized portions wnl, limited by overlying midline bowel gas The liver is homogenous. The intrahepatic portion of the IVC and proximal abdominal aorta are within normal limits. There is no evidence of cholelithiasis. Common bile duct is unremarkable. The visu alized portions of the pancreas are homogenous. The spleen is unremarkable. Kidneys are symmetric a nd free of hydronephrosis. No renal lesions are seen. IMPRESSION: Number Limited evaluation of the pancreas otherwise no significant abnormality seen.
== END | disposition home or self-care (01) ==
LOC: RADUSWWP 12:07
PROVIDERS: ATTEND Internal Medicine Geriatric Medicine
DX: R10.9 Unspecified abdominal pain (principal)
CPT/HCPCS: 76700

== ENCOUNTER → 2023-08-22 | Outpatient (CLI) | payer OTHER ==
--- NOTE | 2023-08-26 08:58 | NM ---
EXAMINATION TYPE: NM DatScan Brain SPECT DATE OF EXAM: 08/22/2023 COMPARISON: NONE HISTORY: Tremor TECHNIQUE: 10 drops of Lugol's solution was administered 1 hour prior to injection as a thyroid bloc kevin agent. After the administration of 4.27 mCi I-123 Ioflupane DaTscan. Images obtained 3 hours p ost injection. SPECT images of the brain were acquired with axial and coronal reconstructions. FINDINGS: The axial SPECT images demonstrate normal background activity. Accounting for head tilt, t here appears to be slight asymmetrically blunted comma-shaped appearance of the left corpus striatum. Z score analysis performed. IMPRESSION: Slightly blunted striatal activity on the left may indicate early changes of idiopathic P arkinson's disease or Parkinsonian syndrome.
== END | disposition home or self-care (01) ==
LOC: RADNMMAIN 11:10
PROVIDERS: ATTEND Psychiatry & Neurology Neurology
DX: G25.0 Essential tremor (principal)
CPT/HCPCS: 78803; A9584